=== PATIENT | male | born 1950 | race Caucasian/White ===

== ENCOUNTER 2024-02-09 14:30 | Outpatient (CLI) | payer MEDICARE, OTHER ==
[2024-02-09 15:33] LABS: BASOPHILS % (AUTO) 0.5 % (0.0-2.0); EOSINOPHILS # (AUTO) 0.1 K/uL (0.0-0.7); EOSINOPHILS % (AUTO) 1.4 % (0.0-6.0); HEMATOCRIT 48 % (39-51); HEMOGLOBIN 16.2 g/dL (13.5-17.5); LYMPHOCYTES # (AUTO) 1.3 K/uL (0.8-4.8); LYMPHOCYTES % (AUTO) 26.8 % (20.0-44.0); MEAN CORPUSCULAR HEMOGLOBIN 32 PG (26.0-33.0); MEAN CORPUSCULAR HGB CONC 34 g/dl (31.0-36.0); MEAN CORPUSCULAR VOLUME 95 fL (80-96); MONOCYTES # (AUTO) 0.4 K/uL (0.1-1.30); MONOCYTES % (AUTO) 7.4 % (2.0-12.0); NEUTROPHILS # (AUTO) 3.2 K/uL (1.8-8.9); NEUTROPHILS % (AUTO) 63.9 % (43.0-81.0); PLATELET COUNT (AUTO) 153 K/uL (150-450); RED BLOOD CELL COUNT(AUTO) 5.05 MIL/uL (4.5-6.0); RED CELL DISTRIBUTION WIDTH 13.4 % (11.5-15.0)
[2024-02-09 15:46] LABS: ALANINE AMINOTRANSFERASE 35 U/L (12-78); ALBUMIN 3.5 g/dL (3.4-5.0); ALKALINE PHOSPHATASE 79 U/L (46-116); ASPARTATE AMINOTRANSFERASE 23 U/L (15-37); BILIRUBIN,TOTAL 0.8 mg/dL (0.2-1.0); CALCIUM, SERUM 8.8 mg/dL (8.5-10.1); CARBON DIOXIDE 26 mmol/L (21-32); CHLORIDE 103 mmol/L (98-107); GLUCOSE 88 mg/dL (74-106); SODIUM SERUM 138 mmol/L (136-145); UREA NITROGEN, BLOOD 19 mg/dL (7-18)
[2024-02-09 15:52] LABS: INR 0.97 (0.91-1.10); PARTIAL THROMBOPLASTIN TIME 27.9 SEC (24.3-34.3); PROTHROMBIN TIME 10.3 SECS (9.2-11.1)
== END 2024-02-09 23:59 | disposition home or self-care (01) ==
LOC: RAD 14:30
PROVIDERS: ATTEND Internal Medicine Interventional Cardiology
DX: Z01.812 Encounter for preprocedural laboratory examination (principal); R06.02 Shortness of breath; R06.00 Dyspnea, unspecified; D68.9 Coagulation defect, unspecified
CPT/HCPCS: 36415; 80053-TC; 85025-TC; 85730-TC

== ENCOUNTER 2024-02-25 07:41 | Inpatient (IN) | payer MEDICARE, OTHER ==
[2024-02-25] VITALS (7 sets, daily range): BP systolic 96–109; BP diastolic 55–65; TEMP 97.7–98.4; O2SAT 94–97
[~2024-02-25] VITALS: Ht 167.6 cm; Wt 95.3 kg
[2024-02-25] MEDS ORDERED: LIDOCAINE 2%-EPI 1:100,000 30 ML VIAL ONE (10:52)
[2024-02-25] MEDS ORDERED: dexaMETHasone SOD PHOSPHATE 1 ML ONE (10:52)
[2024-02-25] MEDS ORDERED: VANCOMYCIN 1 GM VIAL ONE (10:53)
[2024-02-25] MEDS ORDERED: FENTANYL PF 100MCG/2ML AMPUL ONE (11:56)
[2024-02-25] MEDS ORDERED: SEVOFLURANE 250 ML BOTTLE IH ONE (12:13)
[2024-02-25] MEDS ORDERED: ONDANSETRON HCL/PF 4 MG/2 ML VIAL IV PRN (13:30)
[2024-02-25] MEDS: IV NS 0.9% 1,000 ML IV PRN (13:56)
[2024-02-25] MEDS ORDERED: ACETAMINOPHEN 325 MG TABLET PO SCH (14:00)
[2024-02-25] MEDS ORDERED: HYDROMORPHONE 1 MG/1 ML DISP.SYRIN IV PRN (14:00)
[2024-02-25] MEDS: ACETAMINOPHEN 325 MG TABLET PO PRN ×2 (15:03→20:45)
[2024-02-25] MEDS ORDERED: ARIP2TAB3 PO (15:17)
[2024-02-25] MEDS ORDERED: MOUNJARO SQ (15:17)
[2024-02-25] MEDS ORDERED: SACU1TAB7 PO (15:17)
[2024-02-25] MEDS ORDERED: BIMA2.5D5 EACHEYE (15:17)
[2024-02-25] MEDS ORDERED: MAGN400T30 PO (15:17)
[2024-02-25] MEDS ORDERED: ASPI-1169 PO (15:17)
[2024-02-25] MEDS ORDERED: DAPA10TA PO (15:17)
[2024-02-25] MEDS ORDERED: NEBI5TAB8 PO (15:17)
[2024-02-25] MEDS ORDERED: EVOL140P3 SQ (15:17)
[2024-02-25] MEDS ORDERED: ICOS1CAP PO (15:17)
[2024-02-25] MEDS ORDERED: TICA60TA PO (15:17)
[2024-02-25] MEDS ORDERED: TAMS-12 PO (15:17)
[2024-02-25] MEDS ORDERED: PITA2TAB PO (15:17)
[2024-02-25] MEDS ORDERED: CITA20TA19 PO (15:17)
[2024-02-25] MEDS ORDERED: CHOL400C8 PO (15:17)
[2024-02-25] MEDS ORDERED: HYDROCODONE/APAP 5/325MG TABLET PO PRN (15:30)
[2024-02-25] MEDS ORDERED: MAGNESIUM HYDROXIDE 30 ML UDC PO PRN (15:30)
[2024-02-25] MEDS ORDERED: MAG HYDROX/AL HYDROX/SIMETH 30 ML UDC PO PRN (15:30)
[2024-02-25] MEDS ORDERED: Z GUARD REMEDY 4 OZ OINT TP PRN (15:30)
[2024-02-25] MEDS ORDERED: ONDANSETRON HCL/PF 4 MG/2 ML VIAL IVP PRN (15:30)
[2024-02-25] MEDS ORDERED: DEXTROSE 50%-WATER 50 ML DISP.SYRIN IV PRN (16:30)
[2024-02-25] MEDS: BLOOD SUGAR DIAGNOSTIC 1 EACH STRIP IN SCH (17:15)
[2024-02-25] MEDS: INSULIN REGULAR, HUMAN 100 UNIT/ML 3 ML VIAL SQ PRN (17:16)
[2024-02-25] MEDS: VANCOMYCIN 1 GM in IV D5W 250ml IV SCH (22:03)
[2024-02-26 07:00] LABS: BASOPHILS % (AUTO) 0.1 % (0.0-2.0); HEMATOCRIT 46 % (39-51); HEMOGLOBIN 15.4 g/dL (13.5-17.5); LYMPHOCYTES # (AUTO) 1.1 K/uL (0.8-4.8); LYMPHOCYTES % (AUTO) 13.3 % (20.0-44.0); MEAN CORPUSCULAR HEMOGLOBIN 32 PG (26.0-33.0); MEAN CORPUSCULAR HGB CONC 34 g/dl (31.0-36.0); MEAN CORPUSCULAR VOLUME 95 fL (80-96); MONOCYTES # (AUTO) 0.5 K/uL (0.1-1.30); NEUTROPHILS # (AUTO) 6.9 K/uL (1.8-8.9); NEUTROPHILS % (AUTO) 80.6 % (43.0-81.0); PLATELET COUNT (AUTO) 186 K/uL (150-450); RED BLOOD CELL COUNT(AUTO) 4.81 MIL/uL (4.5-6.0); RED CELL DISTRIBUTION WIDTH 13.1 % (11.5-15.0); WHITE BLOOD COUNT (AUTO) 8.6 K/uL (4.3-11.0)
[2024-02-26 07:10] LABS: CALCIUM, SERUM 8.5 mg/dL (8.5-10.1); CARBON DIOXIDE 32 mmol/L (21-32); CHLORIDE 107 mmol/L (98-107); CREATININE 0.9 mg/dL (0.6-1.3); GLUCOSE 117 mg/dL (74-106); MAGNESIUM 2.1 mg/dL (1.8-2.4); PHOSPHORUS 3.2 mg/dL (2.5-4.9); POTASSIUM 4.5 mmol/L (3.5-5.1); SODIUM SERUM 140 mmol/L (136-145); UREA NITROGEN, BLOOD 19 mg/dL (7-18)
[2024-02-26 08:55] VITALS: BP 109/65; TEMP 98.2; O2SAT 97
== END 2024-02-26 10:57 | disposition home or self-care (01) | DRG 142 ==
LOC: DS 07:41 → MED 13:27
PROVIDERS: ADMIT Internal Medicine; ATTEND Internal Medicine
PROC: 09BR0ZZ Excision of Left Maxillary Sinus, Open Approach (ICD-10-PCS; principal; 2024-02-25)
PROC: 0NSR04Z Reposition Maxilla with Internal Fixation Device, Open Approach (ICD-10-PCS; 2024-02-25)
PROC: 0NUR07Z Supplement Maxilla with Autologous Tissue Substitute, Open Approach (ICD-10-PCS; 2024-02-25)
PROC: 0NUT07Z Supplement Right Mandible with Autologous Tissue Substitute, Open Approach (ICD-10-PCS; 2024-02-25)
PROC: 0N5T0ZZ Destruction of Right Mandible, Open Approach (ICD-10-PCS; 2024-02-25)
PROC: 0NUR0JZ Supplement Maxilla with Synthetic Substitute, Open Approach (ICD-10-PCS; 2024-02-25)
PROC: 0NST0ZZ Reposition Right Mandible, Open Approach (ICD-10-PCS; 2024-02-25)
DX: S02.69XA Fracture of mandible of other specified site, initial encounter for closed fracture (principal); M27.2 Inflammatory conditions of jaws; D16.4 Benign neoplasm of bones of skull and face; E78.5 Hyperlipidemia, unspecified; I10 Essential (primary) hypertension; I25.10 Atherosclerotic heart disease of native coronary artery without angina pectoris; E11.9 Type 2 diabetes mellitus without complications; Z95.5 Presence of coronary angioplasty implant and graft; J32.0 Chronic maxillary sinusitis; X58.XXXA Exposure to other specified factors, initial encounter; Y93.9 Activity, unspecified; Y92.009 Unspecified place in unspecified non-institutional (private) residence as the place of occurrence of the external cause; D16.5 Benign neoplasm of lower jaw bone
CPT/HCPCS: 36415; 80048-TC; 82962-TC; 83735-TC; 84100-TC; 85025-TC; 87081-TC; A4338; C1713; G0378; J1100; J1815; J3010; J3370; J3490; J7060

== ENCOUNTER 2024-07-15 09:01 | Inpatient (IN) | payer MEDICARE, OTHER ==
[~2024-07-15] VITALS: Ht 167.6 cm; Wt 97.5 kg
[~2024-07-15 09:01] MED LIST: ARIP2TAB3 PO; ASPI-1169 PO; BIMA2.5D5 EACHEYE; CHOL400C8 PO; CITA20TA19 PO; DAPA10TA PO; EVOL140P3 SQ; ICOS1CAP PO; MAGN400T30 PO; MOUNJARO SQ; NEBI5TAB8 PO; PITA2TAB PO; SACU1TAB7 PO; TAMS-12 PO; TICA60TA PO
[2024-07-15] MEDS ORDERED: FENTANYL PF 250MCG/5ML AMPUL ONE (11:53)
[2024-07-15] MEDS ORDERED: OXYMETAZOLINE HCL NASAL SPRAY 30 ML BOTTLE NS ONE (12:37)
[2024-07-15] MEDS ORDERED: LIDOCAINE 2%-EPI 1:100,000 30 ML VIAL ONE (12:37)
[2024-07-15] MEDS ORDERED: VANCOMYCIN 1 GM VIAL ONE (12:37)
[2024-07-15] MEDS ORDERED: dexaMETHasone SOD PHOSPHATE 2 ML ONE (12:38)
[2024-07-15] MEDS ORDERED: ROCURONIUM BROMIDE 50 MG/5 ML ONE (13:25)
[2024-07-15] MEDS ORDERED: ANESTHESIA TRAY IN PYXIS 1 EA TRAY MC ONE (14:28)
[2024-07-15] MEDS ORDERED: TEMAZEPAM 15 MG CAPSULE PO PRN (17:30)
[2024-07-15] MEDS ORDERED: Z GUARD REMEDY 4 OZ OINT TP PRN (17:30)
[2024-07-15] MEDS ORDERED: MAGNESIUM HYDROXIDE 30 ML UDC PO PRN (17:30)
[2024-07-15] MEDS ORDERED: ACETAMINOPHEN 325 MG TABLET PO PRN (17:30)
[2024-07-15] MEDS ORDERED: ONDANSETRON HCL/PF 4 MG/2 ML VIAL IVP PRN (17:30)
[2024-07-15] MEDS ORDERED: MAG HYDROX/AL HYDROX/SIMETH 30 ML UDC PO PRN (17:30)
[2024-07-15] MEDS ORDERED: ARIPIPRAZOLE 2 MG TABLET PO PRN (17:30)
[2024-07-15] MEDS ORDERED: TRAMADOL HCL 50 MG TABLET PO PRN (17:30)
[2024-07-15] MEDS ORDERED: HOME MED MISCELLANEOUS XX SCH ×2 (17:30)
[2024-07-15] MEDS: IV NS 0.9% 1,000 ML IV PRN (17:44)
[2024-07-15] MEDS: ASPIRIN 81 MG TAB.CHEW PO SCH (17:46)
[2024-07-15] MEDS: TAMSULOSIN 0.4 MG CAP.SR.24H PO SCH (17:46)
[2024-07-15] MEDS ORDERED: HYDROMORPHONE 1 MG/1 ML DISP.SYRIN IV PRN (18:00)
[2024-07-15 20:00] VITALS: BP 131/81; TEMP 97.5; O2SAT 95
[2024-07-15] MEDS: HYDROCODONE/APAP 5/325MG TABLET PO PRN (21:00)
[2024-07-16] MEDS: VANCOMYCIN 1 GM in IV D5W 250ml IV SCH (00:16)
[2024-07-16 06:31] LABS: BASOPHILS % (AUTO) 0.1 % (0.0-2.0); HEMATOCRIT 46 % (39-51); HEMOGLOBIN 16.2 g/dL (13.5-17.5); LYMPHOCYTES # (AUTO) 1.2 K/uL (0.8-4.8); LYMPHOCYTES % (AUTO) 12.5 % (20.0-44.0); MEAN CORPUSCULAR HEMOGLOBIN 33 PG (26.0-33.0); MEAN CORPUSCULAR HGB CONC 35 g/dl (31.0-36.0); MEAN CORPUSCULAR VOLUME 92 fL (80-96); MONOCYTES # (AUTO) 0.3 K/uL (0.1-1.30); MONOCYTES % (AUTO) 3.5 % (2.0-12.0); NEUTROPHILS # (AUTO) 8.1 K/uL (1.8-8.9); NEUTROPHILS % (AUTO) 83.9 % (43.0-81.0); PLATELET COUNT (AUTO) 161 K/uL (150-450); RED BLOOD CELL COUNT(AUTO) 4.99 MIL/uL (4.5-6.0); RED CELL DISTRIBUTION WIDTH 12.9 % (11.5-15.0); WHITE BLOOD COUNT (AUTO) 9.6 K/uL (4.3-11.0)
[2024-07-16 06:50] LABS: CALCIUM, SERUM 8.9 mg/dL (8.5-10.1); MAGNESIUM 2.1 mg/dL (1.8-2.4); POTASSIUM 4.6 mmol/L (3.5-5.1)
[2024-07-16] MEDS: PANTOPRAZOLE 40 MG TABLET.DR PO SCH (07:41)
[2024-07-16 08:00] VITALS: BP 120/65; TEMP 97.9; O2SAT 97
[2024-07-16] MEDS: MAGNESIUM OXIDE 400 MG TABLET PO SCH (08:28)
[2024-07-16] MEDS: CITALOPRAM HYDROBROMIDE 20 MG TABLET PO SCH (08:28)
[2024-07-16] MEDS: METOPROLOL TARTRATE 25 MG TABLET PO SCH (08:28)
[2024-07-16] MEDS: SACUBITRIL/VALSARTAN 24/26MG TABLET PO SCH (08:28)
[2024-07-16] MEDS: DAPAGLIFLOZIN PROPANEDIOL 10 MG TABLET PO SCH (08:29)
[2024-07-16] MEDS ORDERED: TICAGRELOR 90 MG TABLET PO SCH (09:00)
[2024-07-16] MEDS ORDERED: ATORVASTATIN 10 MG TABLET PO SCH (22:00)
[2024-07-16] MEDS ORDERED: LATANOPROST EYE DROP 0.005% 2.5 ML BOTTLE OP SCH (22:00)
== END 2024-07-16 15:10 | disposition home or self-care (01) | DRG 908 ==
LOC: DS 09:01 → MED 15:51
PROVIDERS: ADMIT Nurse Practitioner Acute Care; ATTEND Nurse Practitioner Acute Care
PROC: 0NUR07Z Supplement Maxilla with Autologous Tissue Substitute, Open Approach (ICD-10-PCS; principal; 2024-07-15)
PROC: 0NBR0ZZ Excision of Maxilla, Open Approach (ICD-10-PCS; 2024-07-15)
PROC: 0NST04Z Reposition Right Mandible with Internal Fixation Device, Open Approach (ICD-10-PCS; 2024-07-15)
PROC: 0WB30ZZ Excision of Oral Cavity and Throat, Open Approach (ICD-10-PCS; 2024-07-15)
PROC: 09BR0ZZ Excision of Left Maxillary Sinus, Open Approach (ICD-10-PCS; 2024-07-15)
PROC: 0NPW04Z Removal of Internal Fixation Device from Facial Bone, Open Approach (ICD-10-PCS; 2024-07-15)
PROC: 0NUT07Z Supplement Right Mandible with Autologous Tissue Substitute, Open Approach (ICD-10-PCS; 2024-07-15)
PROC: 0N5T0ZZ Destruction of Right Mandible, Open Approach (ICD-10-PCS; 2024-07-15)
DX: T86.831 Bone graft failure (principal); S02.40CK Maxillary fracture, right side, subsequent encounter for fracture with nonunion; T84.69XA Infection and inflammatory reaction due to internal fixation device of other site, initial encounter; J32.0 Chronic maxillary sinusitis; I25.10 Atherosclerotic heart disease of native coronary artery without angina pectoris; E78.5 Hyperlipidemia, unspecified; E11.9 Type 2 diabetes mellitus without complications; N40.0 Benign prostatic hyperplasia without lower urinary tract symptoms; H40.9 Unspecified glaucoma; F32.A Depression, unspecified; E66.9 Obesity, unspecified; Z68.34 Body mass index [BMI] 34.0-34.9, adult; I10 Essential (primary) hypertension; Z79.82 Long term (current) use of aspirin; Z79.899 Other long term (current) drug therapy; Z95.5 Presence of coronary angioplasty implant and graft; Y92.009 Unspecified place in unspecified non-institutional (private) residence as the place of occurrence of the external cause; Y83.2 Surgical operation with anastomosis, bypass or graft as the cause of abnormal reaction of the patient, or of later complication, without mention of misadventure at the time of the procedure; K13.70 Unspecified lesions of oral mucosa; X58.XXXD Exposure to other specified factors, subsequent encounter
CPT/HCPCS: 36415; 80048-TC; 82962-TC; 83735-TC; 84100-TC; 85025-TC; A4223; C1713; G0378; J0360; J0690; J1100; J2704; J3010; J3370; J3490; J7030; J7060

== ENCOUNTER 2024-12-08 09:50 | Inpatient (IN) | payer MEDICARE, OTHER ==
[~2024-12-08] VITALS: Ht 167.6 cm; Wt 94.9 kg
[2024-12-08] MEDS ORDERED: LIDOCAINE 2%-EPI 1:100,000 30 ML VIAL ONE (12:06)
[2024-12-08] MEDS ORDERED: dexaMETHasone SOD PHOSPHATE 1 ML ONE (12:06)
[2024-12-08] MEDS ORDERED: VANCOMYCIN 1 GM VIAL ONE (12:07)
[2024-12-08] MEDS ORDERED: ROCURONIUM BROMIDE 50 MG/5 ML ONE (12:15)
[2024-12-08] MEDS ORDERED: ARIPIPRAZOLE 2 MG TABLET PO PRN (14:00)
[2024-12-08] MEDS ORDERED: hydrALAZINE HCL IV 20 MG VIAL IV PRN (14:00)
[2024-12-08] MEDS ORDERED: IV NS 0.9% 1,000 ML IV PRN (15:00)
[2024-12-08] MEDS ORDERED: ONDANSETRON HCL/PF 4 MG/2 ML VIAL IV PRN (15:30)
[2024-12-08] MEDS ORDERED: HYDROMORPHONE 1 MG/1 ML DISP.SYRIN IV PRN (15:30)
[2024-12-08] MEDS ORDERED: ACETAMINOPHEN 325 MG TABLET PO PRN (15:30)
[2024-12-08] MEDS ORDERED: PROP80CA2 PO (15:50)
[2024-12-08 16:00] VITALS: BP 125/82; TEMP 97.3; O2SAT 94
[2024-12-08] MEDS: ASPIRIN 81 MG TAB.CHEW PO SCH (17:09)
[2024-12-08] MEDS: MAGNESIUM OXIDE 400 MG TABLET PO SCH (17:09)
[2024-12-08] MEDS: TAMSULOSIN 0.4 MG CAP.SR.24H PO SCH (17:10)
[2024-12-08] MEDS: METOPROLOL TARTRATE 25 MG TABLET PO SCH (17:11)
[2024-12-08] MEDS ORDERED: DEXTROSE 50%-WATER 50 ML DISP.SYRIN IV PRN (19:30)
[2024-12-08 20:00] VITALS: BP 118/64; TEMP 97.7; O2SAT 94
[2024-12-08] MEDS: ATORVASTATIN 10 MG TABLET PO SCH (21:20)
[2024-12-08] MEDS: BLOOD SUGAR DIAGNOSTIC 1 EACH STRIP IN SCH (21:20)
[2024-12-08] MEDS: INSULIN REGULAR, HUMAN 100 UNIT/ML 3 ML VIAL SQ PRN (21:21)
[2024-12-08 21:33] VITALS: BP 118/64; TEMP 97.7; O2SAT 94
[2024-12-08] MEDS: VANCOMYCIN 1 GM in IV D5W 250ml IV SCH (23:07)
[2024-12-09 07:28] LABS: PLATELET COUNT (AUTO) 172 K/uL (150-450); RED BLOOD CELL COUNT(AUTO) 4.95 MIL/uL (4.5-6.0); RED CELL DISTRIBUTION WIDTH 13.4 % (11.5-15.0); WHITE BLOOD COUNT (AUTO) 9.1 K/uL (4.3-11.0)
[2024-12-09 07:30] VITALS: BP 107/64; TEMP 97.7; O2SAT 96
[2024-12-09 07:56] LABS: ASPARTATE AMINOTRANSFERASE 21.0 U/L (15-37); CALCIUM, SERUM 8.5 mg/dL (8.5-10.1); CREATININE 1.0 mg/dL (0.6-1.3); PHOSPHORUS 2.8 mg/dL (2.5-4.9); SODIUM SERUM 137.0 mmol/L (136-145); TOTAL PROTEIN, SERUM 7.1 g/dL (6.4-8.2); UREA NITROGEN, BLOOD 16.0 mg/dL (7-18)
[2024-12-09] MEDS: CITALOPRAM HYDROBROMIDE 20 MG TABLET PO SCH (08:14)
[2024-12-09 08:17] VITALS: BP 107/64
[2024-12-09] MEDS: PROPRANOLOL HCL 40 MG TABLET PO SCH (08:17)
[2024-12-09] MEDS: DAPAGLIFLOZIN PROPANEDIOL 10 MG TABLET PO SCH (08:18)
[2024-12-09] MEDS ORDERED: Medication Not On Formulary EA (Icosapent Ethyl (Vascepa) 4 GM) PO SCH (09:00)
== END 2024-12-09 15:14 | disposition home or self-care (01) | DRG 908 ==
LOC: DS 09:50 → MED 12:31
PROVIDERS: ADMIT Internal Medicine; ATTEND Internal Medicine
PROC: 0N5R0ZZ Destruction of Maxilla, Open Approach (ICD-10-PCS; principal; 2024-12-08 13:20)
PROC: 0NST0ZZ Reposition Right Mandible, Open Approach (ICD-10-PCS; principal; 2024-12-08 13:20)
PROC: 0NSR0ZZ Reposition Maxilla, Open Approach (ICD-10-PCS; principal; 2024-12-08 13:20)
PROC: 09UR07Z Supplement Left Maxillary Sinus with Autologous Tissue Substitute, Open Approach (ICD-10-PCS; principal; 2024-12-08 13:20)
PROC: 0NBT0ZZ Excision of Right Mandible, Open Approach (ICD-10-PCS; principal; 2024-12-08 13:20)
PROC: 0NPW07Z Removal of Autologous Tissue Substitute from Facial Bone, Open Approach (ICD-10-PCS; principal; 2024-12-08 13:20)
PROC: 0NUT07Z Supplement Right Mandible with Autologous Tissue Substitute, Open Approach (ICD-10-PCS; principal; 2024-12-08 13:20)
PROC: 09BR0ZZ Excision of Left Maxillary Sinus, Open Approach (ICD-10-PCS; principal; 2024-12-08 13:20)
DX: T86.831 Bone graft failure (principal); T84.69XA Infection and inflammatory reaction due to internal fixation device of other site, initial encounter; Y83.2 Surgical operation with anastomosis, bypass or graft as the cause of abnormal reaction of the patient, or of later complication, without mention of misadventure at the time of the procedure; Y83.8 Other surgical procedures as the cause of abnormal reaction of the patient, or of later complication, without mention of misadventure at the time of the procedure; Y92.009 Unspecified place in unspecified non-institutional (private) residence as the place of occurrence of the external cause; M89.38 Hypertrophy of bone, other site; E11.9 Type 2 diabetes mellitus without complications; J32.0 Chronic maxillary sinusitis; E78.5 Hyperlipidemia, unspecified; I10 Essential (primary) hypertension; I25.10 Atherosclerotic heart disease of native coronary artery without angina pectoris; N40.0 Benign prostatic hyperplasia without lower urinary tract symptoms; Z79.02 Long term (current) use of antithrombotics/antiplatelets; Z79.82 Long term (current) use of aspirin; Z79.84 Long term (current) use of oral hypoglycemic drugs; Z95.5 Presence of coronary angioplasty implant and graft; Z79.899 Other long term (current) drug therapy
CPT/HCPCS: 36415; 80053-TC; 82962-TC; 83735-TC; 84100-TC; 85025-TC; A4217; A4223; A4338; C1713; G0378; J0360; J0461; J0690; J1100; J1815; J1885; J2704; J3370; J3490; J7030; J7050; J7060

== ENCOUNTER 2025-06-06 22:42 | Emergency (ER) | payer MEDICARE, OTHER ==
[~2025-06-06] VITALS: Ht 165.1 cm; Wt 90.7 kg
[~2025-06-06 22:42] MED LIST changes: -BIMA2.5D5 EACHEYE; -EVOL140P3 SQ; -MOUNJARO SQ; +PROP80CA2 PO
[2025-06-06] MEDS ORDERED: ASPIRIN 325 MG TABLET ONE (23:18)
[2025-06-06] MEDS: ASPIRIN 325 MG TABLET PO ONE (23:18)
[2025-06-06] MEDS ORDERED: KETOROLAC TROMETHAMINE 15 MG/ML VIAL ONE (23:18)
[2025-06-06] MEDS: KETOROLAC TROMETHAMINE 15 MG/ML VIAL IV ONE (23:18)
[2025-06-06 23:23] LABS: PLATELET COUNT (AUTO) 152 K/uL (150-450); RED BLOOD CELL COUNT(AUTO) 4.81 MIL/uL (4.5-6.0); RED CELL DISTRIBUTION WIDTH 12.8 % (11.5-15.0); WHITE BLOOD COUNT (AUTO) 4.9 K/uL (4.3-11.0)
[2025-06-06 23:34] LABS: CALCIUM, SERUM 8.7 mg/dL (8.5-10.1); CREATININE 1.0 mg/dL (0.6-1.3); SODIUM SERUM 143 mmol/L (136-145); UREA NITROGEN, BLOOD 22 mg/dL (7-18)
[2025-06-06 23:49] LABS: ASPARTATE AMINOTRANSFERASE 22 U/L (15-37); NT-PRO BNP 48 pg/mL (0-125); TOTAL PROTEIN, SERUM 7.1 g/dL (6.4-8.2)
[2025-06-07] MEDS ORDERED: ONDANSETRON HCL/PF 4 MG/2 ML VIAL IVP PRN (00:30)
[2025-06-07] MEDS ORDERED: ARIPIPRAZOLE 2 MG TABLET PO PRN (00:30)
[2025-06-07] MEDS ORDERED: ACETAMINOPHEN 325 MG TABLET PO PRN (00:30)
[2025-06-07] MEDS ORDERED: hydrALAZINE HCL IV 20 MG VIAL IV PRN (00:30)
[2025-06-07] MEDS ORDERED: MORPHINE SULFATE INJ 2 MG/ML DISP.SYRIN IV PRN (00:30)
[2025-06-07 00:46] VITALS: BP 122/77; TEMP 98.3; O2SAT 98
[2025-06-07] MEDS ORDERED: Medication Not On Formulary EA (Icosapent Ethyl (Vascepa) 4 GM) PO SCH (09:00)
[2025-06-07] MEDS ORDERED: DAPAGLIFLOZIN PROPANEDIOL 10 MG TABLET PO SCH (09:00)
[2025-06-07] MEDS ORDERED: CITALOPRAM HYDROBROMIDE 20 MG TABLET PO SCH (09:00)
[2025-06-07] MEDS ORDERED: HEPARIN SODIUM, PORCINE 5000 UNITS/1 ML VIAL SQ SCH (09:00)
[2025-06-07] MEDS ORDERED: TAMSULOSIN 0.4 MG CAP.SR.24H PO SCH (18:00)
[2025-06-07] MEDS ORDERED: ASPIRIN 81 MG TAB.CHEW PO SCH (18:00)
== END 2025-06-07 00:47 | disposition left against medical advice (07) ==
LOC: ER 22:50
DX: R07.89 Other chest pain (principal); E11.9 Type 2 diabetes mellitus without complications; E78.5 Hyperlipidemia, unspecified; G89.29 Other chronic pain; F32.A Depression, unspecified; I11.0 Hypertensive heart disease with heart failure; N40.0 Benign prostatic hyperplasia without lower urinary tract symptoms; Z98.890 Other specified postprocedural states; Z95.5 Presence of coronary angioplasty implant and graft; Z79.899 Other long term (current) drug therapy; Z79.84 Long term (current) use of oral hypoglycemic drugs; Z79.82 Long term (current) use of aspirin
CPT/HCPCS: 99285; 96374; 71045; 93005; 85025; 80048; 80076; 36415 ×2; 84484 ×2; 83880; J1885